=== PATIENT | female | born 1955 | race Caucasian/White ===

== ENCOUNTER 2016-08-15 21:23 | Inpatient (IN) | payer MEDICARE ==
[2016-08-15 21:46] VITALS: BP 158/88
[2016-08-15] MEDS ORDERED: Magnesium Hydroxide (MOM) 30 mL UDC PO PRN (21:59)
[2016-08-15] MEDS ORDERED: Maalox 30 mL Cup PO PRN (21:59)
[2016-08-15] MEDS ORDERED: Ipratropium Neb 0.5 mg/2.5 mL UD HHN PRN (22:02)
[2016-08-16] MEDS: Pantoprazole 40 mg EC Tab PO SCH (06:21)
[2016-08-16] MEDS ORDERED: Budesonide 0.5 Mg/2 mL Ud HHN ONE (07:02)
[2016-08-16] MEDS ORDERED: AMOXICILLIN 875 MG PO SCH (09:00)
[2016-08-16] MEDS: Potassium Chloride 20 mEq ER Tab PO SCH (09:38)
[2016-08-16] MEDS: Multivitamin Tab PO SCH (09:38)
[2016-08-17] MEDS: Pantoprazole 40 mg EC Tab PO SCH (05:59)
--- NOTE | 2016-08-17 06:59 | Psychosocial Evaluation ---
DATE OF SERVICE: 08/16/2016 IDENTIFYING DATA: The patient is a 60-year-old woman living with her son. JUSTIFICATION OF HOSPITALIZATION: The patient is admitted on 5150 as a danger to self. CHIEF COMPLAINT: "I'm depressed." HISTORY OF PRESENT ILLNESS: This is the first psychiatric hospitalization to [facility] for this patient who is reported to have acute depression following the of her son. The patient is reported to have overdosed on narcotics in an attempt to end her life. The patient was found by the family unresponsive and hence the patient has been taken to the Emergency Room where the patient has been medically stabilized. The patient was admitted over there on 08/10/2016, and the patient once medically stabilized has been transferred over here for further psychiatric stabilization. PAST PSYCHIATRIC HISTORY: The patient denies any prior psychiatric hospitalization. MEDICAL HISTORY: The patient is reporting that she has multiple surgeries and has backache. HOME MEDICATIONS: Alprazolam, citalopram, duloxetine, furosemide, gabapentin, losartan, oxycodone, pantoprazole, and trazodone. Chart is reviewed. PHYSICAL OR SEXUAL ABUSE HISTORY: None. LEGAL PROBLEMS: None at this time. SUBSTANCE ABUSE HISTORY: The patient denies use of any alcohol. 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 MENTAL STATUS EXAMINATION: The patient is a 60-year-old woman looking her stated age, cooperative. Eye contact is fair. Mood is noted to be depressed. Affect is constricted. Insight and judgment are noted to be impaired. Impulse control seems to be poor. Coping skills are also noted to be very poor. The patient has been having difficult time to cope with the stress. The patient is mentioning that her son passed to be in 04/2016 and he was 29 and he overdosed on medications. Six days after the of the son, her sister in May. The patient is stating that it was too much for her to deal with it. The patient is reported to have been having crying spells. She has overdosing on Percocet. The patient is reported to have had 20 pills and there was only 18 pills left in the bottle. The patient is regretful at this time, the patient denies and any auditory hallucinations or delusions are noted. The patient is alert and oriented x 3. DIAGNOSTIC IMPRESSION: AXIS IA: Major depressive disorder, recurrent and severe. AXIS IB: Overdosed on medications. AXIS II: None. AXIS III: As per Dr. Golden. IMMEDIATE TREATMENT PLAN: The patient is going to be observed on inpatient unit and provided with supportive psychotherapy. The patient is going to be restarted on the Celexa and trazodone. The patient is going to be closely monitored and provided with supportive psychotherapy. The patient is going to be encouraged to participate in groups and verbalize the concerns. Once stabilized, the patient is going to be discharged to the family for followup on outpatient basis. JOB# [id number]
[2016-08-17] MEDS: Budesonide 0.5 Mg/2 mL Ud HHN SCH ×2 (07:06→19:40)
[2016-08-17] MEDS: Multivitamin Tab PO SCH (09:06)
[2016-08-17] MEDS: Potassium Chloride 20 mEq ER Tab PO SCH (09:06)
--- NOTE | 2016-08-17 09:32 | History & Physical ---
ADMIT DATE: 08/17/2016 CHIEF COMPLAINT: Depression. HISTORY OF PRESENT ILLNESS: The patient is a 60-year-old white female who has been transferred from [facility]. The patient presented to [facility] with altered mental status. The patient has a history of chronic back pain, chronic narcotic abuse, narcotic dependence, anxiety, insomnia, and depression, who was brought in by family unresponsive. At home, the patient was found to have bottled narcotics, which she had only 15 left from original 120 pills, which she filled about a week ago. The patient states that her brother recently away due to medication overdose. The patient denied any suicidal ideation. The patient in the ER at [facility] was in respiratory distress and placed on BiPAP. PAST MEDICAL HISTORY: Anxiety, depression, chronic low back pain, chronic narcotic use, narcotic dependence, insomnia, and hypertension. PAST SURGICAL HISTORY: Negative. SOCIAL HISTORY: No reports of smoking, drinking, or drug use except for narcotics. ALLERGIES: No known allergies. MEDICATIONS: See medication reconciliation form. REVIEW OF SYSTEMS: See history of present illness. PHYSICAL EXAMINATION: GENERAL: The patient is awake, in no acute distress. VITAL SIGNS: On admission, temperature 98.8, pulse 73, blood pressure 154/88, respiration 18, and O2 sat is 100% on room air. HEENT: Normocephalic and atraumatic. Extraocular movements intact. Oropharynx clear. NECK: Supple. No thyromegaly. No lymphadenopathy. RESPIRATORY: Clear. No wheezes or rhonchi. CARDIOVASCULAR: S1 and S2. No murmur, rubs, or gallops. GASTROINTESTINAL: Soft, nontender, and nondistended. Positive bowel sounds. GENITOURINARY: No CVA tenderness. No suprapubic tenderness. BACK: No midline tenderness. EXTREMITIES: Equal pulses bilaterally. SKIN: Negative. PSYCHIATRIC: The patient is depressed. NEUROLOGIC: Cranial nerves intact. Extraocular movements are intact. Sensation intact. Neurovascular is intact. Bilateral muscles lower extremity diminished . LABORATORY DATA: There are no labs on admission. IMPRESSION: 1. Major depressive disorder (recurrent/severe). 2. Anxiety. 3. Chronic low back pain. 4. Narcotic dependence. 5. Insomnia. 6. Hypertension. 7. History of respiratory failure (acute). 8. History of right lower lobe pneumonia. 9. History of rhabdomyolsis. 10. History of acute on chronic kidney disease. PLAN: The patient is admitted to Geropsych Unit at [facility]. Psychiatry consultation by Dr. Summers. Obtain further labs and consultation as needed. JOB# [id number] MTDD
--- NOTE | 2016-08-17 12:59 | Admit Criteria Form ---
Admit Criteria Forms - Admit Criteria Diagnosis: MAJOR DEPRESSIVE DISORDER Clinical Indications for Admission to Inpatient Care ( Place 'X' for any and all applicable criteria): Hospital admission is needed for appropriate care of the patient because of ANY ONE of the following[A](3)(4)(5): [ ]I. Inpatient behavioral care is needed as indicated by ALL of the following: [ ]a) Treatment is needed because of patient risk due to ANY ONE of the following: [ ]i) Imminent danger to self due to ANY ONE of the following (7) (8): [ ]1) Imminent risk for recurrence of a suicide attempt or act of serious self-harm as indicated by ALL of the following: [ ]A. Very recent suicide attempt or deliberate act of serious self-harm [ ]B. Absence of sufficient relief of the action' s precipitants [ ]2) Current plan for suicide or serious self-harm [ ]3) Persistent thoughts of suicide or serious self- harm that cannot be adequately monitored at a lower level of care because of ANY ONE of the following: [ ]A. Insufficient behavioral care provider availability [ ]B. Inadequate patient support system [ ]C. Patient characteristics such as high impulsivity or unreliability [ ]D. Ruminative flooding; uncontrollable and overwhelming profusion of negative thoughts [ ]E. Frantic hopelessness; fatalistic conviction that life will not improve along with oppressive sense of entrapment and doom [ ]F. Active substance use disorder is present [ ]G. Ready access to lethal means is present [ ]ii) Imminent danger to others due to ANY ONE of the following( 10)(11): [ ]1) Imminent risk for recurrence of an attempt to seriously harm another as indicated by ALL of the following: [ ]A. Very recent attempt to seriously harm another [ ]B. Absence of sufficient relief of the action' s precipitants [ ]2) Current plan for homicide or seriously harming another [ ]3) Command auditory hallucination for serious self harm to self or others [ ]4) Persistent thoughts of homicide or seriously harming another that cannot be adequately monitored at a lower level of care because of ANY ONE of the following: [ ]A. Insufficient behavioral care provider availability [ ]B. Inadequate patient support system [ ]C. Patient characteristics such as high impulsivity or unreliability [ ]D. Active substance use disorder is present [ ]E. Ready access to lethal means is present [ ]iii) Behavioral health disorder is present with ALL of the following: (12)(16)(17)(18): [ ]1) Severe psychiatric or behavioral symptoms are present , including ANY ONE of the following: [ ]A. Hallucinations that are very bothersome to patient or are associated with severe pressure to respond to voices(17)(18) [ ]B. Delusions that are very bothersome to patient or are associated with severe pressure to act on beliefs(17)(18) [ ]C. Disorganized speech that is almost impossible to follow(17)(18) [ ]D. Motor behavior that is almost constantly abnormal or bizarre or catatonic(17)(18) [ ]E. Severe negative symptoms (eg, severe decrease in facial expression or self-initiated behavior)(17)(18) [ ]F. Severe norman (eg, daily periods of extensive mood elevation or irritability)(19)(20)(21)(22) [ ]G. Severe depression (eg, daily symptoms of deep hopelessness)[C] [ ]H. Severe anxiety[D] [ ]I. Severe comorbid substance use disorder with inability to control use, intense withdrawal symptoms, or extreme negative impact on primary psychiatric disorder(2)(7)(25) [ ]J. Severe impairment in cognition, memory, judgment, or impulse control(26)(27) [ ]K. Severe impairment in behavior, including physical or verbal aggression, disruptive behaviors, or internal or external anger manifestations (eg, rumination or outbursts)(28) [ ]L. Other psychiatric symptoms which are acute or represent worsening over baseline (eg, hyperactivity, agitation, obsessions, or compulsions)(29)(30)(31) [ ]2) Severe dysfunction in daily living is present as indicated by ANY ONE of the following: [ ]A. Extreme deterioration in social interactions ( eg, threatening behaviors with little or no provocation) [ ]B. Complete withdrawal from all social interactions [ ]C. Complete neglect of self-care with associated impairment in physical status [ ]D. Extreme disruption in vegetative function (eg , life-sustaining functions such as eating) [ ]E. Complete inability to maintain any appropriate aspect of personal responsibility in any adult roles (eg, occupational, parental) [ ]b) Treatment situation and needs are appropriate for level as indicated by ANY ONE of the following(13)(16): [ ]i) Patient unwilling to participate voluntarily and requires treatment (eg, legal commitment) in an involuntary unit [ ]ii) Voluntary treatment at lower level not feasible (e.g., very short-term crisis intervention or residential care unavailable or unacceptable for patient condition) [ ]iii) Need for physical restraint, seclusion, or other involuntary control (e.g., actively violent patient and adequate clinical rapport cannot be established to control violence) (25) [ ]iv) Hydjif-iiu-joufc medical or nursing care to address symptoms and initiate intervention is required; specific need has been identified [ ]II. Delirium as described by ANY ONE of the following (26)(27)(28): [ ]a) Delirium due to alcohol or sedative [B] withdrawal (16)(29)(30)( 31) [ ]b) Delirium of uncertain etiology that has not responded to appropriate treatment in emergency department or urgent care setting (32)(33) [ ]c) Delirium that prevents performance of a life-sustaining function (eg, feeding or hydrating oneself) (9) [ ]III. Administration of a somatic treatment that requires aauedb-sqe-tdjuf medical or nursing care because of a potential adverse physical effect or medical comorbidity(7) [X ]IV. Behavioral Health condition, symptom, or finding for which emergency and observation care have failed or are not considered appropriate (Contents from [facility] clinical indications for admission to inpatient care have been integrated in this form) The original [facility] [employer] content created by [employer] has been revised. The portions of the content which have been revised are identified through the use of italic text or in bold, and [facility] has neither reviewed nor approved the modified material. All other unmodified content is copyright [facility] [employer]. Please see references footnoted in the original [facility] edition 2016 Admit Criteria Met?: Yes
--- NOTE | 2016-08-18 00:42 | Progress Notes ---
DATE: 08/17/2016 SUBJECTIVE: The patient is awake and alert. Per Psychiatry, the patient is depressed. OBJECTIVE: VITAL SIGNS: Temperature 97.8, pulse 84, blood pressure 112/76, respirations 14, O2 saturation 98% on room air. CARDIOVASCULAR: S1 and S2. RESPIRATORY: Clear. GASTROINTESTINAL: Soft, positive bowel sounds. LABORATORY DATA: No labs for today. ASSESSMENT: 1. On 5150 hold. 2. Major depressive disorder (recurrent/severe). 3. Status post acute respiratory failure. 4. Status post pneumonia (right lower lobe). 5. Anxiety. 6. Chronic lower back pain. 7. Narcotic dependence. 8. Insomnia. 9. Hypertension. 10. Gastroesophageal reflux disease. 11. Status post narcotic overdose. 12. History of acute on chronic kidney disease. PLAN: Continue current medication and treatment. We will obtain labs in a.m. Further recommendation per Psychiatry. JOB# [id number] MTDD
[2016-08-18] MEDS: Pantoprazole 40 mg EC Tab PO SCH (06:20)
[2016-08-18] MEDS: Budesonide 0.5 Mg/2 mL Ud HHN SCH ×2 (07:08→19:57)
--- NOTE | 2016-08-18 08:57 | Progress Notes ---
DATE: 08/17/2016 PSYCHIATRIC PROGRESS NOTE TIME PATIENT SEEN: 11:45 a.m. SUBJECTIVE: Staff was spoken to. The patient is interviewed. Mood is noted to be depressed. Affect is constricted. The patient is isolative and withdrawn. The patient is talking about the of her son and following that a sister and the patient is stating that she cannot deal with the pain. Coping skills are noted to be very poor. The patient is currently on 40 mg of citalopram and also resuming the trazodone at night time. The patient's coping skills are noted to be poor. The patient is not able to contract for safety. ASSESSMENT: The patient is still suicidal. PLAN: To continue the patient with supportive therapy. I encouraged the patient to verbalize the concerns rather than to act out. Please note that the patient is not ready to be discharged to a lower level of care yet. JOB# [id number]
[2016-08-18 09:28] LABS: ALB/GLOB RATIO 1.4 (1.0-1.8); ALKALINE PHOSPHATASE 76 U/L (34-104); ANION GAP 13.1 (7.0-16.0); BILIRUBIN,TOTAL 0.9 mg/dL (0.3-1.0); BUN - UREA NITROGEN 16 mg/dL (7-25); BUN/CREATININE RATIO 26.7; CARBON DIOXIDE 24.6 mEq/L (21.0-31.0); CHLORIDE 104 mEq/L (98-107); CREATININE - SERUM 0.6 mg/dL (0.6-1.2); GLUCOSE 128 mg/dL (70-105); POTASSIUM SERUM 3.7 mEq/L (3.5-5.1); SGOT 43 U/L (13-39); SGPT/ALT 200 U/L (7-52); SODIUM SERUM 138 mEq/L (136-145)
[2016-08-18 09:34] LABS: % BASOPHILS 0.1 % (0.0-2.0); % EOSINOPHILS 2.1 % (0.0-5.0); % LYMPHOCYTES 20.3 % (20.0-50.0); % MONOCYTES 6.3 % (2.0-10.0); % NEUTROPHILS 71.2 % (40.0-80.0); HEMATOCRIT 45.6 % (35.0-45.0); HEMOGLOBIN 15.5 gm/dL (11.7-15.5); MEAN CELL VOLUME 90.9 fl (81-100); MEAN CORPUSCULAR HEMOGLOBIN 30.9 pg (27.0-31.0); MEAN PLATELET VOLUME 7.9 fl; NEUTROPHILE ABSOLUTE 10.8 Th/cmm (1.8-8.0); PLATELET COUNT 426 Th/cmm (150-400); RED BLOOD COUNT 5.02 Mil/cmm (3.80-5.10); RED CELL DISTRIBUTION WIDTH 13.9 % (11.5-20.0)
[2016-08-18] MEDS: Potassium Chloride 20 mEq ER Tab PO SCH (09:36)
[2016-08-18] MEDS: Multivitamin Tab PO SCH (09:37)
[2016-08-18 09:38] LABS: WHITE BLOOD COUNT 15.2 Th/cmm (4.8-10.8)
[2016-08-19] MEDS: Pantoprazole 40 mg EC Tab PO SCH (06:14)
[2016-08-19] MEDS: Budesonide 0.5 Mg/2 mL Ud HHN SCH ×3 (08:13→19:05)
[2016-08-19] MEDS: Potassium Chloride 20 mEq ER Tab PO SCH (08:27)
[2016-08-19] MEDS: Multivitamin Tab PO SCH (08:27)
--- NOTE | 2016-08-19 11:17 | Diagnostic Imaging Report ---
Ultrasound liver HISTORY: Abnormal liver function test The liver appears somewhat generous in size. No definite focal lesions. No abnormality seen within the gallbladder. No biliary dilatation is appreciated. IMPRESSION: 1. Limited exam with a somewhat generous overall hepatic size. No focal hepatic lesions. Detailed evaluation of the intra-abdominal organs not performed at this time.
--- NOTE | 2016-08-19 18:53 | Progress Notes ---
DATE: 08/18/2016 PSYCHIATRIC PROGRESS NOTE TIME PATIENT SEEN: 9:30 a.m. SUBJECTIVE: Staff was spoken to. The patient is interviewed. Mood is noted to be depressed. The patient is . The patient is still talking about her son's . Coping skills are noted to be very poor. The patient is very tearful. The patient is stating that her family came by to visit her yesterday and she is trying to cope with them with the stress. The patient is currently on Cymbalta and low dose of Seroquel has been able to tolerate the medications. ASSESSMENT: The patient is still depressed. PLAN: To continue the patient with supportive therapy and followup. [facility]# [id number]
[2016-08-19] MEDS: PSEUDOEPHEDRINE 120 MG PO SCH (20:31)
--- NOTE | 2016-08-19 22:06 | Progress Notes ---
DATE: 08/18/2016 SUBJECTIVE: The patient is awake and alert. The patient still was in Geropsych Unit. Per evaluation by Psychiatry, she is still suicidal. OBJECTIVE: VITAL SIGNS: Temperature 98.1, pulse 95, blood pressure 150/84, and respiration 19, and O2 sat is 95% on room air. CARDIOVASCULAR: S1 and S2. RESPIRATORY: Clear. GASTROINTESTINAL: Soft. Positive bowel sounds. LABORATORY DATA: Hematology: WBC 15.2, hemoglobin 15.5, hematocrit 45.6, platelet count of 426, no left shift noted. Chemistry 138, potassium 3.7, chloride 104, bicarbonate 24, anion gap 13, BUN 16, creatinine 0.6, GFR is 160, glucose 128, and calcium is 10. Total bili 0.9, AST is 43, ALT is 200, alkaline phosphatase per labs, total protein 7.3, albumin 4.3, and globulin 3.0. ASSESSMENT: 1. Leukocytosis. 2. Hyperglycemia. 3. Transaminitis. 4. 5150 hold 6. Anxiety. 7. Chronic lower back pain. 8. Narcotic dependency. 9. Insomnia. 10. Hypertension. 11. Gastroesophageal reflux disease. 12. Status post narcotic overdose. 13. Chronic kidney disease. PLAN: Continue current medication and treatment. Obtain labs on Thursday. Awaiting ultrasound results. Further recommendation per Psychiatry. JOB# [id number] MTDD
[2016-08-20] MEDS: Pantoprazole 40 mg EC Tab PO SCH (06:13)
[2016-08-20] MEDS: Budesonide 0.5 Mg/2 mL Ud HHN SCH ×2 (07:33→20:26)
[2016-08-20 08:03] LABS: % BASOPHILS 0.5 % (0.0-2.0); % EOSINOPHILS 0.5 % (0.0-5.0); % LYMPHOCYTES 17.5 % (20.0-50.0); % MONOCYTES 9.2 % (2.0-10.0); % NEUTROPHILS 72.3 % (40.0-80.0); HEMATOCRIT 46.1 % (35.0-45.0); HEMOGLOBIN 15.3 gm/dL (11.7-15.5); MEAN CELL VOLUME 91.8 fl (81-100); MEAN CORPUSCULAR HEMOGLOBIN 30.4 pg (27.0-31.0); MEAN CORPUSCULAR HGB CONC 33.1 pg (28.0-36.0); MEAN PLATELET VOLUME 7.9 fl; NEUTROPHILE ABSOLUTE 9.2 Th/cmm (1.8-8.0); PLATELET COUNT 450 Th/cmm (150-400); RED BLOOD COUNT 5.02 Mil/cmm (3.80-5.10); RED CELL DISTRIBUTION WIDTH 13.8 % (11.5-20.0)
[2016-08-20 08:06] LABS: WHITE BLOOD COUNT 12.8 Th/cmm (4.8-10.8)
[2016-08-20 08:13] LABS: ANION GAP 12.1 (7.0-16.0); BUN - UREA NITROGEN 14 mg/dL (7-25); CALCIUM SERUM 10.3 mg/dL (8.6-10.3); CARBON DIOXIDE 22.4 mEq/L (21.0-31.0); CHLORIDE 105 mEq/L (98-107); CREATININE - SERUM 0.7 mg/dL (0.6-1.2); GLUCOSE 123 mg/dL (70-105); POTASSIUM SERUM 3.5 mEq/L (3.5-5.1); SODIUM SERUM 136 mEq/L (136-145)
[2016-08-20] MEDS: Multivitamin Tab PO SCH (08:28)
[2016-08-20] MEDS: Potassium Chloride 20 mEq ER Tab PO SCH (08:28)
[2016-08-20] MEDS: PSEUDOEPHEDRINE 120 MG PO SCH (11:19)
--- NOTE | 2016-08-20 15:59 | Progress Notes ---
DATE: 08/19/2016 TIME PATIENT SEEN: 12 noon. SUBJECTIVE: Staff was spoken to. The patient is interviewed. Mood is noted to be depressed. Affect is constricted. The patient is isolative and withdrawn. Coping skills are noted to be poor. Sleep and appetite also noted to be poor. The patient has been still talking about the of son. No side effects to the medications are noted. The patient's coping skills at this time are noted to be very poor and the patient is stating that her family is coming and she is pleased with it. ASSESSMENT: The patient is still depressed. PLAN: To continue the patient with supportive therapy. I encouraged the patient to verbalize the concerns rather than to act out. [facility]# [id number]
--- NOTE | 2016-08-20 18:02 | Progress Notes ---
DATE: 08/19/2016 SUBJECTIVE: The patient is awake and alert. The patient complains of headache. Per nursing staff, the patient had been taking Tylenol for headache, but is not helping. The patient still is in the Geropsych Unit. Per Psychiatry, the patient is still suicidal. OBJECTIVE: VITAL SIGNS: Temperature 98, pulse 85, blood pressure 113/64, respiration 20, and O2 sat is on room air. CARDIOVASCULAR: S1 and S2. RESPIRATORY: Clear. GASTROINTESTINAL: Soft and nontender. HEENT: Sinus tenderness present. LABORATORY DATA: No labs for today. MICROBIOLOGY: MRSA screen from August 15 negative. RADIOLOGY: Liver ultrasound shows overall limited examination with somewhat enlarged liver. No focal lesions. ASSESSMENT: 1. 5150 hold. 2. Major depressive disorder (recurrent/severe). 3. Anxiety. 4. Chronic low back pain. 5. Narcotic dependence. 6. Hypertension. 7. Gastroesophageal reflux disease. 8. Chronic kidney disease. 9. Transaminitis. 10. Hepatomegaly. PLAN: Continue current medication and treatment. Obtain labs in a.m. Further recommendation per Psychiatry. We will start the patient on antihistamines and decongestant for sinus headache. Continue Tylenol also for headache. JOB# [id number] MTDEfrem
[2016-08-21] MEDS: Pantoprazole 40 mg EC Tab PO SCH (06:24)
[2016-08-21] MEDS: Budesonide 0.5 Mg/2 mL Ud HHN SCH ×2 (07:26→20:53)
--- NOTE | 2016-08-21 08:14 | Progress Notes ---
DATE: 08/20/2016 PSYCHIATRIC PROGRESS NOTE TIME PATIENT SEEN: 6:00 p.m. SUBJECTIVE: Staff was spoken to. The patient is interviewed. Mood is noted to be depressed. Affect is constricted. The patient's coping skills are noted to be poor. The patient has been still worrying about the son that committed suicide. The patient has been stating that her sister is coming, they have been of some help. The patient at this time is severely depressed and is not able to contract for safety. PLAN: To continue the patient with supportive therapy. I encouraged the patient to verbalize the concerns rather than to act out. JOB# [id number]
[2016-08-21] MEDS: Potassium Chloride 20 mEq ER Tab PO SCH (08:18)
[2016-08-21] MEDS: Multivitamin Tab PO SCH (08:18)
--- NOTE | 2016-08-22 05:49 | Progress Notes ---
DATE: 08/21/2016 PSYCHIATRIC PROGRESS NOTE TIME PATIENT SEEN: 9:45 a.m. SUBJECTIVE: Staff was spoken to. The patient is interviewed. Mood is noted to be depressed. Affect is constricted. The patient is still isolative and withdrawn. Coping skills are noted to be poor. No side effects to the medications are noted. The patient is stating that she has been trying to convince her sister to see if she can keep an eye on her and she would like to continue treatment on an outpatient basis. No side effects to the medications are noted at this time. The patient is on Cymbalta. ASSESSMENT: The patient is still depressed. PLAN: To continue the patient with the current medications and followup. [facility]# [id number]
[2016-08-22 06:08] LABS: % BASOPHILS 0.7 % (0.0-2.0); % EOSINOPHILS 2.6 % (0.0-5.0); % LYMPHOCYTES 34.9 % (20.0-50.0); % MONOCYTES 9.2 % (2.0-10.0); % NEUTROPHILS 52.6 % (40.0-80.0); HEMATOCRIT 44.2 % (35.0-45.0); HEMOGLOBIN 14.7 gm/dL (11.7-15.5); MEAN CELL VOLUME 91.8 fl (81-100); MEAN CORPUSCULAR HEMOGLOBIN 30.6 pg (27.0-31.0); MEAN CORPUSCULAR HGB CONC 33.3 pg (28.0-36.0); NEUTROPHILE ABSOLUTE 4.6 Th/cmm (1.8-8.0); PLATELET COUNT 470 Th/cmm (150-400); RED BLOOD COUNT 4.82 Mil/cmm (3.80-5.10); RED CELL DISTRIBUTION WIDTH 13.6 % (11.5-20.0)
[2016-08-22 06:21] LABS: WHITE BLOOD COUNT 8.8 Th/cmm (4.8-10.8)
[2016-08-22 06:29] LABS: ANION GAP 12.6 (7.0-16.0); BUN - UREA NITROGEN 13 mg/dL (7-25); BUN/CREATININE RATIO 21.7; CALCIUM SERUM 9.6 mg/dL (8.6-10.3); CHLORIDE 105 mEq/L (98-107); CREATININE - SERUM 0.6 mg/dL (0.6-1.2); GLUCOSE 97 mg/dL (70-105); POTASSIUM SERUM 3.6 mEq/L (3.5-5.1); SODIUM SERUM 141 mEq/L (136-145)
[2016-08-22] MEDS: Pantoprazole 40 mg EC Tab PO SCH (06:33)
[2016-08-22] MEDS: Budesonide 0.5 Mg/2 mL Ud HHN SCH ×3 (07:19→19:09)
[2016-08-22] MEDS: Multivitamin Tab PO SCH (08:39)
[2016-08-22] MEDS: Potassium Chloride 20 mEq ER Tab PO SCH (08:40)
--- NOTE | 2016-08-22 14:04 | Progress Notes ---
DATE: 08/21/2016 SUBJECTIVE: The patient is awake and alert. The patient's headache has improved. The patient still in Geropsych Unit. Per Psychiatry, the patient still is depressed. OBJECTIVE: VITAL SIGNS: Temperature 98.2, pulse 82, blood pressure 105/63, respirations 20, O2 saturation on room air. CARDIOVASCULAR: S1 and S2. RESPIRATORY: Clear. GASTROINTESTINAL: Soft, positive bowel sounds. LABORATORY DATA: No labs for today. ASSESSMENT: 1. On 5150 hold. 2. Major depressive disorder (recurrent/severe). 3. Anxiety. 4. Chronic low back pain. 5. Narcotic dependence. 6. Hypertension. 7. Gastroesophageal reflux disease. 8. Chronic kidney disease. 9. Transaminitis. 10. Hepatomegaly. 11. Sinus headache (improved). 12. Upper respiratory infection. PLAN: Continue current medication and treatment. Obtain labs in a.m. Further recommendation per Psychiatry. JOB# [id number] [facility]
--- NOTE | 2016-08-22 18:35 | Progress Notes ---
DATE: 08/20/2016 SUBJECTIVE: : The patient is still in Geropsych Unit. The patient is awake and alert. Per Psychiatry, the patient is less depressed. OBJECTIVE: VITAL SIGNS: Temperature is 99.8, pulse 75, blood pressure per nursing, respirations 18, O2 sats 97% on room air. CARDIOVASCULAR: S1 and S2. RESPIRATORY: Clear. GASTROINTESTINAL: Soft. Positive bowel sounds. LABORATORY DATA: CBC: WBC 12.8, hemoglobin 15.3, hematocrit 46.1, platelet count of 450, 17% lymphocytes. Chemistry: Sodium 136, potassium 3.5, chloride per labs, bicarb 22, anion gap 12, BUN 14, creatinine 0.7, GFR per labs . Glucose is 123, calcium 10.3. MICROBIOLOGY: No new microbiology results. RADIOLOGY: No new radiology results. ASSESSMENT: 1. Leukocytosis (improved). 2. Thrombocytosis. 3. Hyperglycemia. 4. On 5150 hold. 6. Major depressive disorder (recurrent/severe). 7. Anxiety. 8. Chronic lower back pain. 9. Narcotic dependence. 10. Hypertension. 11. Gastroesophageal reflux disease. 12. Chronic kidney disease. 13. Transaminitis. 14. Hepatomegaly. PLAN: Continue current medication and treatment. Obtain labs on Thursday. Further recommendations per Psychiatry. JOB# [id number] MTDEfrem
--- NOTE | 2016-08-23 04:00 | Progress Notes ---
DATE: 08/22/2016 PSYCHIATRIC PROGRESS NOTE TIME PATIENT SEEN: 4:30 p.m. SUBJECTIVE: Staff was spoken to. The patient is interviewed. Mood is noted to be depressed. Affect is constricted. The patient is stating that she has been trying to work with her sister to see if she can go home. The patient's family has been coming and visiting the patient. The patient has been participating in the groups. No suicidal gestures are noted. The patient has been able to comply with the treatment. The patient is currently on citalopram 40 mg a day and has been able to tolerate the medications. The patient is also getting the 50 mg of trazodone at night time. No major side effects to the medications are noted. The patient has been able to verbalize the concerns so far. ASSESSMENT: The patient's depression seems to be resolving. PLAN: To continue the patient with the supportive therapy. I encouraged the patient to verbalize the concerns rather than to act out. [facility]# [id number] KIANNA
[2016-08-23] MEDS: Pantoprazole 40 mg EC Tab PO SCH (06:59)
[2016-08-23] MEDS: Multivitamin Tab PO SCH (08:32)
[2016-08-23] MEDS: Potassium Chloride 20 mEq ER Tab PO SCH (08:33)
[2016-08-23] MEDS: Budesonide 0.5 Mg/2 mL Ud HHN SCH ×2 (08:42→19:44)
[2016-08-24] MEDS: Pantoprazole 40 mg EC Tab PO SCH (06:08)
--- NOTE | 2016-08-24 08:19 | Progress Notes ---
DATE: 08/23/2016 PSYCHIATRIC PROGRESS NOTE TIME PATIENT SEEN: 11:00 a.m. SUBJECTIVE: Staff was spoken to. The patient is interviewed. Mood is noted to be depressed still. Affect is constricted. The patient, however, is stating that she has one more son. She needs to care for him. She cannot have the suicidal plans any longer and the patient is willing to comply with the treatment. The patient is expecting her sister to visit her tomorrow, and hopefully, she states that the sister is going to be giving her a chance. The patient is currently on citalopram 40 mg on a daily basis and has been able to tolerate the medication. ASSESSMENT: The patient is still depressed. PLAN: To continue the patient with the current medications and follow. JOB# [id number]
[2016-08-24] MEDS: Budesonide 0.5 Mg/2 mL Ud HHN SCH ×2 (08:31→20:01)
--- NOTE | 2016-08-24 09:22 | Progress Notes ---
DATE: 08/23/2016 SUBJECTIVE: The patient is awake and alert. The patient is still in Geropsych Unit. The patient is depressed. Per psychiatry, the patient's depression is improving. OBJECTIVE: VITAL SIGNS: Temperature 98.2, pulse 90, blood pressure ____, respiratory 18, and O2 sat is 97% on room air. CARDIOVASCULAR: S1 and S2. RESPIRATORY: Clear. GASTROINTESTINAL: Soft. Positive bowel sounds. LAB DATA: No labs for today. ASSESSMENT: See previous note for diagnosis. PLAN: Continue current treatment and medication. We will obtain labs on Thursday. Further recommendations per psychiatry. JOB# [id number]
[2016-08-24] MEDS: Multivitamin Tab PO SCH (09:48)
[2016-08-24] MEDS: Potassium Chloride 20 mEq ER Tab PO SCH (09:48)
--- NOTE | 2016-08-24 12:52 | Progress Notes ---
DATE: 08/22/2016 SUBJECTIVE: The patient still is depressed. The patient is still in Geropsych Unit. OBJECTIVE: VITAL SIGNS: Temperature is 98.8, pulse is 73, blood pressure ____/76, respirations 20, O2 sat 96% on room air. CARDIOVASCULAR: S1 and S2. RESPIRATORY: Clear. GASTROINTESTINAL: Soft. Positive bowel sounds. LABORATORY DATA: Hematology: WBC 8.8, hemoglobin 14.7, hematocrit ____, platelet count of 470. No left shift. Chemistry: Sodium 141, potassium 3.0, chloride 105, ____ 12.6, BUN 13, creatinine 0.6. GFR is more than 60. Glucose is 97, calcium is 9.6. ASSESSMENT: Thrombocytosis, depressive, ____. PLAN: Continue current medication and treatment. Obtain labs on Thursday. Further recommendations per Psychiatry. JOB# [id number]
--- NOTE | 2016-08-25 03:30 | Progress Notes ---
DATE: 08/24/2016 PSYCHIATRIC PROGRESS NOTE TIME PATIENT SEEN: 12:30 p.m. SUBJECTIVE: Staff was spoken to. The patient is interviewed. Mood is noted be depressed. Affect is constricted. The patient is still on citalopram 40 mg in the morning and has been able to tolerate the medication. The patient is also on trazodone to help her to sleep. The patient has been able to comply with the treatment. So far, the patient is stating that she has been trying to contact her sister who is supposed to be visiting her today, but she has not heard anything. The patient has been having difficult time to deal with the unit. The patient is stating that she does not belong in here. She is on an outpatient basis. ASSESSMENT: The patient is still depressed. PLAN: To continue the patient with the current medications. I encouraged the patient to verbalize the concerns rather than to act out. JOB# [id number]
[2016-08-25] MEDS: Pantoprazole 40 mg EC Tab PO SCH (06:12)
[2016-08-25] MEDS: Budesonide 0.5 Mg/2 mL Ud HHN SCH (07:56)
[2016-08-25] MEDS: Potassium Chloride 20 mEq ER Tab PO SCH (08:52)
[2016-08-25] MEDS: Multivitamin Tab PO SCH (08:52)
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
--- NOTE | 2016-08-26 09:53 | Progress Notes ---
DATE: 08/23/2016 SUBJECTIVE: The patient is awake and alert. The patient still is in Geropsych Unit. Per Psychiatry, the patient is still depressed. OBJECTIVE: VITAL SIGNS: Temperature 98.2, pulse 82, blood pressure ____, pulse 18, sating 97% on room air. CARDIOVASCULAR: S1 and S2. RESPIRATORY: Clear. GASTROINTESTINAL: Soft, positive bowel sounds. LABORATORY DATA: No labs for today. ASSESSMENT: 1. On 5150 hold. 2. Major depressive disorder (recurrent/severe). 3. Anxiety. 4. ____. 5. Chronic lower back pain. 6. Narcotic dependence. 7. Hypertension. 8. Gastroesophageal reflux disease. 9. Chronic kidney disease. 10. History of transaminitis. 11. Hepatomegaly. PLAN: Continue current medication. Obtain labs in a.m. ____ Psychiatry. JOB# [id number]
== END 2016-08-25 16:30 | disposition home or self-care (01) | DRG 885 ==
LOC: GERO 21:23
PROVIDERS: ADMIT Psychiatry & Neurology Psychiatry; ATTEND Psychiatry & Neurology Psychiatry
DX: F33.2 Major depressive disorder, recurrent severe without psychotic features (principal); M62.82 Rhabdomyolysis; F11.20 Opioid dependence, uncomplicated; I12.9 Hypertensive chronic kidney disease with stage 1 through stage 4 chronic kidney disease, or unspecified chronic kidney disease; F41.9 Anxiety disorder, unspecified; N18.9 Chronic kidney disease, unspecified; K21.9 Gastro-esophageal reflux disease without esophagitis; G47.00 Insomnia, unspecified; G89.29 Other chronic pain; M54.5 Low back pain; R74.0 Nonspecific elevation of levels of transaminase and lactic acid dehydrogenase [LDH]; D72.829 Elevated white blood cell count, unspecified; R73.9 Hyperglycemia, unspecified; J06.9 Acute upper respiratory infection, unspecified; D47.3 Essential (hemorrhagic) thrombocythemia; R16.0 Hepatomegaly, not elsewhere classified; Z91.5 Personal history of self-harm
CPT/HCPCS: 36415-UA; 76705-TC; 80048-TC; 80053-TC; 85025-TC; 86592-TC; 90899; 94760; Z7610